=== PATIENT | male | born 1955 | race Caucasian/White ===

== ENCOUNTER → 2017-02-09 | Outpatient (CLI) | payer MEDICARE, OTHER ==
[~2017-02-09] MED LIST: ACCUPRIL PO; ACETAMINOPHEN PO; ADALATCC PO; ALLERCLEAR10 MG PO; ASPIRIN EC81 M1 PO; ASPIRIN ENTERI325 M1 PO; ASPIRIN PO; ASPIRIN325 M1 PO; ASPIRIN81 M1 PO; ASPIRIN81 M2 PO; ASPIRIN81 MG PO; ASTEPRO205.5 MCG/; AZITHROMYCIN500 MG PO; B-COMPLEX-VITA1 EACH PO; BENTYL10 MG; CARDURA2 MG PO; CARVEDILOL6.25 MG PO; CIPRO PO; CLOPIDOGREL75 MG PO; CYMBALTA30 MG PO; DESYREL50 MG PO; FISH OIL 1,001000 MG PO; FISH OIL500 MG PO; FLEXERIL10 MG PO; FLOMAX0.4 M1 PO; FLONASE 0.05% N16 G1; FOLIC ACID1 MG PO; GABAPENTIN300 M2 PO; GABAPENTIN600 MG PO; HCTZ PO; HYDROCODON-ACE1 EAC7 PO; IBUPROFEN PO; IMDUR PO; IMDUR-ER60 MG PO; LASIX PO; LIPITOR PO; LISINOPRIL PO; LISINOPRIL20 MG PO; LOPRESSOR PO; LORTAB 10-3251 EACH PO; METFORMIN HCL500 M1 PO; MICRO-K PO; MONTELUKAST SOD10 MG PO; NAPROSYN375 MG PO; NAPROSYN500 MG PO; NEURONTIN600 MG PO; NEXIUM PO; NIFEDICAL PO; NITROGLYGERIN0.4 MG SL; NORVASC PO; NYSTATIN5 ML PO; OMEPRAZOLE20 M1 PO; PANTOPRAZOLE SO40 MG PO; PLAVIX PO; PRAVACHOL PO; PRAVASTATIN SOD40 MG PO; PROAIR HFA8.5 GM; PROAIR HFA8.5 GM IH; PROTONIX PO; SULFAMETHOXAZO1 EACH PO; SYMBICORT 80-10.2 GM; SYMBICORT80 INH; TICLID250 MG PO; TUDORZA PRESS400 MCG IH; VIT B12 PO; VITAMIN B-121000 MCG PO; ZESTRIL40 MG PO; [UNRECOGNIZED DRUG - OTHER] OS
--- NOTE | ~2017-02-09 | MR32 ---
[facility] A Service of [facility] & [facility] RADIOLOGY TEXT RESULTS PATIENT: MICHELE MAJOR LOCATION: [facility] : 55 UNIT #: [id number] AGE: [address]: MIKE Wall APRN SEX: M ORDER DR: [id number] [facility] [address] [place], [place] [address] [id number] O MR#: [id number] Acc #: [id number] NAME: MICHELE MAJOR : 1955 SEX: M STUDY DATE/TIME: 02/09/2017 14:37 UNIT: [facility] ROOM: STUDY DESCRIPTION: MR Cervical Wo Contrast Attending Physician: Mike Ramírez Aprn Referring Physician: Mike Ramírez Aprn Ordering Physician: Mike Ramírez Aprn Primary Care Physician: Mike Ramírez Aprn MRI CENTER REPORT This report is preliminary unless electronic signature is present. EXAM MRI of the cervical spine without contrast dated 02/09/2017 COMPARISON MRI cervical spine without contrast dated 01/23/2014 HISTORY Chronic headaches and chronic neck pain with numbness in the left third, fourth fingers for years. Patient fell backwards in his kitchen 2 weeks ago and symptoms worsened. FINDINGS Multisequence multiplanar imaging of the cervical spine was obtained without contrast. Patient has known anterior discectomy and fusion at C4-5 which is relatively stable. No hardware is noted at these levels. Previously noted edema in these two vertebral bodies three years ago is now not seen. Disc osteophyte complex are at multiple levels. There is minimal retrolisthesis of C3 with respect to C4 and C5 with respect to C6. Mild edema is noted within the C3 vertebral body. Cord demonstrates expected course and caliber. Pre and paravertebral soft tissues do not demonstrate any significant abnormality. C2-3: Mild disc osteophyte complex but otherwise unremarkable. C3-4: Disc osteophyte complex with mild canal stenosis. Mild bilateral facet hypertrophic changes are noted with mild inferior left neural foraminal narrowing. C4-5: Disc osteophyte complex with moderate canal stenosis. There is ybgx-wv-dvisdxis inferior bilateral neural foraminal narrowing and gzpb-ne-kfivlady bilateral facet hypertrophic changes. Relatively stable. C6-7: Disc osteophyte complex with borderline size to mild canal stenosis. No significant neural foraminal narrowing. Mild bilateral STS. [facility] A Service of [facility] & [facility] RADIOLOGY TEXT RESULTS PATIENT: MICHELE MAJOR LOCATION: [facility] : 55 UNIT #: [id number] AGE: [address]: MIKE Wall, [employer] SEX: M ORDER DR: facet changes. C7-T1: Concentric disc bulge with borderline size to mild canal stenosis. No neural foraminal narrowing. IMPRESSION 1. Given the differences in slice selection there is no significant interval worsening. 2. Patient has known anterior discectomy and fusion at C4-5 which is relatively stable. No hardware is noted at these levels. Previously noted edema in these two vertebral bodies three years ago is now not seen. 3. There is interval new mild edema noted at C3 vertebral body. Dictated by... Hair Roldan M.D. THIS IS AN ELECTRONICALLY VERIFIED REPORT Hair Roldan M.D. at 02/10/2017 4:41 PM CPR/josefina TD: 02/10/2017 14:29 JOB #: [id number] MRI CENTER REPORT Page 1 of 1 COPY
--- NOTE | ~2017-02-09 | MR18 ---
[facility] A Service of [facility] & [facility] RADIOLOGY TEXT RESULTS PATIENT: MICHELE MAJOR LOCATION: [facility] : 55 UNIT #: [id number] AGE: [address]: MIKE Wall APRN SEX: M ORDER DR: [id number] [facility] [address] [place], [place] [address] [id number] O MR#: [id number] Acc #: [id number] NAME: MICHELE MAJOR : 1955 SEX: M STUDY DATE/TIME: 02/09/2017 14:37 UNIT: [facility] ROOM: STUDY DESCRIPTION: MR Brain Wo Contrast Attending Physician: Mike Ramírez Aprn Referring Physician: Mike Ramírez Aprn Ordering Physician: Mike Ramírez Aprn Primary Care Physician: Mike Ramírez Aprn MRI CENTER REPORT This report is preliminary unless electronic signature is present. EXAM MRI of the brain without contrast dated 02/09/2017 COMPARISON None. HISTORY Chronic headaches with chronic neck pain and numbness extending to the left third and fourth fingers for years. Patient fell backwards in his kitchen 2 weeks ago. Headache has now worsened in the posterior and superior aspect with worsened neck pain. Persistent neck pain since neck surgery in November 2013. FINDINGS Multisequence multiplanar imaging of the brain was obtained without contrast. Age-appropriate parenchymal volume is seen. Scattered small hyperintense T2-signal lesions are noted in the subcortical and periventricular white matter. No acute stroke, space-occupying mass, mass effect, midline shift or hydrocephalus. Thick slices through the sella with the pituitary gland, pineal region are unremarkable. Degenerative changes are noted in the cervical spine from C3 extending inferiorly. They are incompletely characterized in the current study. Moderate bilateral ethmoid and mild bilateral frontal sinus mucosal thickening are seen. Imaged orbits with the ocular structures and mastoids are unremarkable. IMPRESSION 1. Nonspecific scattered hyperintense T2-signal lesions are noted in the brain involving the white matter, likely related to mild chronic microvascular ischemic change or migraine based on age and statistics. 2. Paranasal sinus mucosal thickening. 3. Degenerative changes in the cervical spine. Refer to MRI cervical spine study. [facility] A Service of [facility] RADIOLOGY TEXT RESULTS PATIENT: MICHELE MAJOR LOCATION: [facility] : 55 UNIT #: [id number] AGE: [address]: MIKE Wall, SHR[employer] PE[employer]ER SEX: M ORDER DR: Dictated by... Hair Roldan M.D. THIS IS AN ELECTRONICALLY VERIFIED REPORT Hair Roldan M.D. at 02/10/2017 4:27 PM CPR/mjs TD: 02/10/2017 08:42 JOB #: [id number] MRI CENTER REPORT Page 1 of 1 COPY
== END | disposition home or self-care (01) ==
LOC: CMRI 13:23
DX: G44.319 Acute post-traumatic headache, not intractable (principal); R42 Dizziness and giddiness; R90.82 White matter disease, unspecified; J34.89 Other specified disorders of nose and nasal sinuses; M47.892 Other spondylosis, cervical region; G95.19 Other vascular myelopathies; Z98.890 Other specified postprocedural states
CPT/HCPCS: 70551; 72141

== ENCOUNTER → 2017-04-21 | Outpatient (CLI) | payer MEDICARE, OTHER | END | disposition home or self-care (01) | LOC: CRC 09:27 | DX: J45.30 Mild persistent asthma, uncomplicated (principal); R53.82 Chronic fatigue, unspecified | CPT/HCPCS: 94060; 94726; 94729 ==